=== PATIENT | female | born 1935 | race African-American/Black ===

== ENCOUNTER 2017-09-14 12:32 | Emergency (ER) | payer MEDICARE, MEDICAID ==
[2017-09-14 14:18] LABS: #Basophils 0.1 thou/uL (0.0-0.2); #Eosinphils 0.2 thou/uL (0.0-0.7); #Lymphocytes 2.4 thou/uL (1.20-3.40); #Monocytes 0.5 thou/uL (0.11-0.59); #Neutrophils 4.8 thou/uL (1.40-6.50); %Basophils 1.3 % (0.0-1.0); %Eosinophils 2.9 % (0.0-10.0); %Lymphocytes 29.9 % (21.0-51.0); %Monocytes 6.5 % (0.0-10.0); Hematocrit 36.6 % (36.0-47.0); Mean Platelet Volume 7.8 fL (7.4-10.4); Red Blood Cell (RBC) Count 4.32 mill/uL (4.20-5.40)
--- NOTE | 2017-09-14 14:28 | RAD ---
RADIOGRAPH CHEST 1 VIEW: HISTORY: An 82-year-old female with left-sided chest pain. FINDINGS: There is cardiomegaly. The thoracic aorta is tortuous and ectatic. There is no evidence of air space density, pulmonary edema, or pneumothorax. The lateral costophrenic angles are sharp. IMPRESSION: 1) No acute pulmonary findings. 2) Cardiomegaly without congestive heart failure. 3) Ectasia of thoracic aorta. armando [] POS: [facility]
[2017-09-14 14:37] LABS: ALT (SGPT) 22 U/L (8-55); AST (SGOT) 27 U/L (5-34); Alkaline Phosphatase 78 U/L (40-150); Anion Gap 15 mmol/L (10-20); BUN (Urea Nitrogen) 12 mg/dL (9.8-20.1); Bilirubin, Total 0.3 mg/dL (0.2-1.2); CK (CPK) 55 U/L (29-168); Calc. Creatinine Clearance 0 mL/min (70-130); Calcium 8.8 mg/dL (7.8-10.44); Carbon Dioxide 25 mmol/L (23-31); Chloride 99 mmol/L (98-107); Estimated GFR-MDRD 45; Globulin 3.5 g/dL (2.4-3.5)
[2017-09-14 14:42] LABS: Troponin I 0.013 ng/mL (< 0.028)
--- NOTE | 2017-10-11 13:26 | EKG ---
Test Reason : CP Blood Pressure : / mmHG Vent. Rate : 059 BPM Atrial Rate : 059 BPM P-R Int : 162 ms QRS Dur : 090 ms QT Int : 450 ms P-R-T Axes : 012 -24 -84 degrees QTc Int : 445 ms Sinus bradycardia Minimal voltage criteria for LVH, may be normal variant T wave abnormality, consider inferolateral ischemia Abnormal ECG Confirmed by JADIEL ESPINAL ([id number]), telegraph editor DEVIN NARAYANAN ([id number] on 10/11/2017 1:26:09 PM Referred By: EZEQUIEL Confirmed By:JADIEL ESPINAL
== END 2017-09-14 16:07 | disposition home or self-care (01) ==
LOC: ERS 12:32
DX: R07.89 Other chest pain (principal); I25.10 Atherosclerotic heart disease of native coronary artery without angina pectoris; E78.5 Hyperlipidemia, unspecified; I13.0 Hypertensive heart and chronic kidney disease with heart failure and stage 1 through stage 4 chronic kidney disease, or unspecified chronic kidney disease; I50.9 Heart failure, unspecified; N18.9 Chronic kidney disease, unspecified; E11.22 Type 2 diabetes mellitus with diabetic chronic kidney disease; D64.9 Anemia, unspecified; J44.9 Chronic obstructive pulmonary disease, unspecified; F31.9 Bipolar disorder, unspecified; Z86.73 Personal history of transient ischemic attack (TIA), and cerebral infarction without residual deficits; Z87.891 Personal history of nicotine dependence; Z79.1 Long term (current) use of non-steroidal anti-inflammatories (NSAID); Z79.899 Other long term (current) drug therapy
CPT/HCPCS: 36415; 71010; 80053; 82550; 82553; 83880; 84484; 85025; 93005

== ENCOUNTER 2017-10-04 12:52 | Emergency (ER) | payer MEDICAID, MEDICARE ==
--- NOTE | 2017-10-04 13:30 | RAD ---
RADIOGRAPH CHEST 1 VIEW: HISTORY: 82-year-old female with acute chest pain. FINDINGS: There is cardiomegaly. The thoracic aorta is tortuous and ectatic. There is no evidence of air space density, pulmonary edema, or pneumothorax. The lateral costophrenic angles are sharp. IMPRESSION: 1. No acute pulmonary findings. 2. Cardiomegaly without congestive heart failure. 3. Ectasia of thoracic aorta. armando [] POS: [facility]
[2017-10-04 13:31] LABS: #Basophils 0.1 thou/uL (0.0-0.2); #Eosinphils 0.1 thou/uL (0.0-0.7); #Lymphocytes 1.9 thou/uL (1.20-3.40); #Monocytes 0.5 thou/uL (0.11-0.59); #Neutrophils 3.7 thou/uL (1.40-6.50); %Basophils 1.2 % (0.0-1.0); %Eosinophils 2.1 % (0.0-10.0); %Lymphocytes 30.6 % (21.0-51.0); %Monocytes 7.2 % (0.0-10.0); Hematocrit 35.9 % (36.0-47.0); Mean Platelet Volume 7.5 fL (7.4-10.4); Red Blood Cell (RBC) Count 4.24 mill/uL (4.20-5.40); White Blood Cell (WBC) Count 6.3 thou/uL (4.8-10.8)
[2017-10-04] MEDS ORDERED: Insulin Regular 300 UNITS/3 ML VIAL ONE (13:59)
[2017-10-04 14:13] LABS: ALT (SGPT) 84 U/L (8-55); AST (SGOT) 97 U/L (5-34); Alkaline Phosphatase 80 U/L (40-150); Anion Gap 13 mmol/L (10-20); BUN (Urea Nitrogen) 10 mg/dL (9.8-20.1); Bilirubin, Total 0.4 mg/dL (0.2-1.2); CK (CPK) 70 U/L (29-168); Calc. Creatinine Clearance 0 mL/min (70-130); Calcium 9.6 mg/dL (7.8-10.44); Carbon Dioxide 32 mmol/L (23-31); Chloride 96 mmol/L (98-107); Estimated GFR-MDRD 49; Globulin 3.6 g/dL (2.4-3.5); Protein, Total 7.2 g/dL (6.0-8.3)
[2017-10-04 14:16] LABS: Troponin I 0.012 ng/mL (< 0.028)
== END 2017-10-04 15:44 | disposition home or self-care (01) ==
LOC: ERS 12:52
DX: E11.65 Type 2 diabetes mellitus with hyperglycemia (principal); M25.512 Pain in left shoulder; G89.29 Other chronic pain; I25.10 Atherosclerotic heart disease of native coronary artery without angina pectoris; E03.9 Hypothyroidism, unspecified; E78.5 Hyperlipidemia, unspecified; M06.9 Rheumatoid arthritis, unspecified; J44.9 Chronic obstructive pulmonary disease, unspecified; I12.9 Hypertensive chronic kidney disease with stage 1 through stage 4 chronic kidney disease, or unspecified chronic kidney disease; E11.22 Type 2 diabetes mellitus with diabetic chronic kidney disease; N18.9 Chronic kidney disease, unspecified; F31.9 Bipolar disorder, unspecified; Z86.73 Personal history of transient ischemic attack (TIA), and cerebral infarction without residual deficits; Z79.4 Long term (current) use of insulin; Z87.891 Personal history of nicotine dependence; Z79.899 Other long term (current) drug therapy
CPT/HCPCS: 36416; 71010; 80053; 82550; 82553; 83880; 84484; 85025; 93005; 96374; J1815

== ENCOUNTER 2017-10-16 14:53 | Emergency (ER) | payer MEDICARE, MEDICAID ==
--- NOTE | 2017-10-16 16:09 | RAD ---
PORTABLE CHEST ONE VIEW 10/16/17 at 3:54 p.m. HISTORY: Chest pain, weakness, hyperglycemia. FINDINGS: Comparison is made with exam of 10/04/17. The heart size is normal. The aorta is tortuous and the lungs are well expanded without focal areas o f consolidation or pneumothorax or pleural effusions. IMPRESSION: No radiographic evidence of acute cardiopulmonary process. POS: [facility]
[2017-10-16 16:19] LABS: #Basophils 0.1 thou/uL (0.0-0.2); #Eosinphils 0.1 thou/uL (0.0-0.7); #Lymphocytes 2.7 thou/uL (1.20-3.40); #Monocytes 0.4 thou/uL (0.11-0.59); #Neutrophils 3.2 thou/uL (1.40-6.50); %Basophils 1.9 % (0.0-1.0); %Eosinophils 1.4 % (0.0-10.0); %Lymphocytes 41.3 % (21.0-51.0); %Monocytes 6.7 % (0.0-10.0); %Neutrophils 48.8 % (42.0-75.0); Hemoglobin 12.2 g/dL (12.0-16.0); Mean Corpuscular HGB CONC 32.7 g/dL (32.0-36.0); Mean Corpuscular Hemoglobin 28.3 pg (27.0-31.0); Mean Corpuscular Volume 86.5 fl (81.0-99.0); Mean Platelet Volume 7.6 fL (7.4-10.4); Platelet Count 362 thou/uL (130-400); RBC Distribution Width 15.9 % (11.5-14.5); White Blood Cell (WBC) Count 6.5 thou/uL (4.8-10.8)
[2017-10-16 16:24] LABS: Bilirubin Negative (Negative); Blood, Urine Negative (Negative); Clarity CLEAR (Clear); Glucose, Urine (Dipstick) 250 mg/dL (Negative); Leukocyte Negative (Negative); Nitrite Negative (Negative); Protein, Urine (Dipstick) Negative (Neg-Trace); Specific Gravity, Urine 1.012 (1.002-1.036); Urobilinogen 0.2 mg/dL (0.2-1.0); pH, Urine 6.5 (5.0-9.0)
[2017-10-16 16:35] LABS: CKMB 1.7 ng/mL (0-6.6); Troponin I 0.015 ng/mL (< 0.028)
[2017-10-16 16:42] LABS: ALT (SGPT) 60 U/L (8-55); AST (SGOT) 55 U/L (5-34); Albumin 3.5 g/dL (3.4-4.8); Alkaline Phosphatase 73 U/L (40-150); Anion Gap 17 mmol/L (10-20); BUN (Urea Nitrogen) 11 mg/dL (9.8-20.1); Bilirubin, Total 0.3 mg/dL (0.2-1.2); CK (CPK) 130 U/L (29-168); Calc. Creatinine Clearance 0 mL/min (70-130); Calcium 9.8 mg/dL (7.8-10.44); Carbon Dioxide 22 mmol/L (23-31); Chloride 96 mmol/L (98-107); Estimated GFR-MDRD 49; Globulin 3.9 g/dL (2.4-3.5); Glucose 420 mg/dL (83-110); Lipase 43 U/L (8-78); Magnesium 2.2 mg/dL (1.6-2.6); Phosphorus 3.9 mg/dL (2.3-4.7); Protein, Total 7.4 g/dL (6.0-8.3); Sodium 131 mmol/L (136-145)
[2017-10-16] MEDS ORDERED: Morphine 4 MG/ML VIAL ONE (18:28)
[2017-10-16] MEDS ORDERED: Ondansetron HCl/PF 4 MG/2 ML Vial ONE (18:28)
[2017-10-16 19:30] LABS: Troponin I 0.026 ng/mL (< 0.028)
== END 2017-10-16 20:13 | disposition home or self-care (01) ==
LOC: ERS 14:53
DX: E11.65 Type 2 diabetes mellitus with hyperglycemia (principal); I25.10 Atherosclerotic heart disease of native coronary artery without angina pectoris; I13.0 Hypertensive heart and chronic kidney disease with heart failure and stage 1 through stage 4 chronic kidney disease, or unspecified chronic kidney disease; I50.9 Heart failure, unspecified; N18.9 Chronic kidney disease, unspecified; E11.9 Type 2 diabetes mellitus without complications; E03.9 Hypothyroidism, unspecified; D64.9 Anemia, unspecified; E78.5 Hyperlipidemia, unspecified; J44.9 Chronic obstructive pulmonary disease, unspecified; Z86.73 Personal history of transient ischemic attack (TIA), and cerebral infarction without residual deficits; Z87.891 Personal history of nicotine dependence
CPT/HCPCS: 36415; 36416; 71045; 80053; 81003; 82010; 82553; 83605; 83690; 83735; 83880; 84100; 84484; 85025; 93005; 96361; 96374; J2270; J2405